=== PATIENT | female | born 1965 | race Caucasian/White ===

== ENCOUNTER 2018-05-25 15:06 | Inpatient (IN) | payer OTHER ==
[2018-05-25] MEDS: LIDOCAINE/MYLANTA 40 ML BTL PO (20:27)
[2018-05-25] MEDS: FAMOTIDINE 20 MG INJ IV (20:28)
[2018-05-25] MEDS: DIPHENHYDRAMINE 50 MG INJ IV (20:28)
[2018-05-25] MEDS: METOCLOPRAMIDE 10 MG INJ IV (20:28)
[2018-05-25 20:34] LABS: ADD UMIC YES; UR ASCORBIC ACID NEGATIVE (NEGATIVE); UR BILIRUBIN (Dip) NEGATIVE (NEGATIVE); UR BLOOD (Dip) NEGATIVE (NEGATIVE); UR CLARITY CLEAR (CLEAR); UR COLOR STRAW (YELLOW); UR GLUCOSE (Dip) NEGATIVE (NEGATIVE); UR KETONES (Dip) NEGATIVE (NEGATIVE); UR LEUKOCYTE ESTERASE (Dip) 1+ Leu/ul (NEGATIVE); UR NITRITE (Dip) NEGATIVE (NEGATIVE); UR RBC 0 /HPF (0-5); UR SPECIFIC GRAVITY (Dip) 1.011 (1.003-1.030); UR TOTAL PROTEIN (Dip) NEGATIVE (NEGATIVE); UR UROBILINOGEN (Dip) NEGATIVE (NEGATIVE); UR WBC 6 /HPF (0-5)
[2018-05-25 20:39] LABS: ADD MAN DIFF? NO
[2018-05-25 20:40] LABS: BASOPHIL # 0.1 10^3/ul (0.0-0.1); BASOPHILS % 0.5 % (0.0-2.0); EOSINOPHILS # 0.2 10^3/ul (0.0-0.5); EOSINOPHILS % 0.9 % (0.0-7.0); HEMATOCRIT 39.3 % (37.0-47.0); HEMOGLOBIN 12.8 g/dl (12.0-16.0); LYMPHOCYTES % 17.4 % (15.0-51.0); MEAN CORPUSCULAR HEMOGLOBIN 29.6 pg (29.0-33.0); MEAN CORPUSCULAR HGB CONC 32.6 g/dl (32.0-37.0); MEAN PLATELET VOLUME 10.3 fl (7.4-10.4); MONOCYTES % 5.5 % (0.0-11.0); NEUTROPHIL # 13.1 10^3/ul (1.6-7.5); NEUTROPHILS % 75.1 % (39.0-77.0); PLATELET COUNT 299 10^3/UL (140-415); RED BLOOD COUNT 4.32 10^6/ul (4.20-5.40); RED CELL DISTRIBUTION WIDTH 11.8 % (11.5-14.5)
[2018-05-25 20:40] LABS: WHITE BLOOD COUNT 17.4 10^3/ul (4.8-10.8)
[2018-05-25 21:01] LABS: ALANINE AMINOTRANSFERASE 28 IU/L (13-69); ALBUMIN 4.5 g/dl (3.3-4.9); ALBUMIN/GLOBULIN RATIO 1.07; ALKALINE PHOSPHATASE 110 IU/L (42-121); ANION GAP 12 (5-13); ASPARTATE AMINO TRANSFERASE 35 IU/L (15-46); BILIRUBIN,INDIRECT 0.3 mg/dl (0-1.1); BILIRUBIN,TOTAL 0.3 mg/dl (0.2-1.3); BLOOD UREA NITROGEN 12 mg/dl (7-20); CALCIUM 11.1 mg/dl (8.4-10.2); CARBON DIOXIDE 26 mmol/L (21-31); CHLORIDE 101 mmol/L (97-110); CREATININE 0.45 mg/dl (0.44-1.00); Estimated GFR > 60 mL/min (>60); GLUCOSE 145 mg/dl (70-220); LIPASE 66 U/L (23-300); SODIUM 139 mmol/L (135-144); TOTAL PROTEIN 8.7 g/dl (6.1-8.1)
[2018-05-26] MEDS ORDERED: CLINDAMYCIN 900 MG/D5W (PMX) 50 ML IVPB (01:30)
[2018-05-26] MEDS: SOD CHLORIDE 0.9% 1,000 ML IV ×3 (01:33→02:58)
[2018-05-26] MEDS: metroNIDAZOLE 500 MG/NS (PMX) 100 ML IVPB ×5 (01:46→23:26)
[2018-05-26] MEDS ORDERED: BISACODYL (EC) 5 MG TAB PO (02:30)
[2018-05-26] MEDS ORDERED: ONDANSETRON 4 MG INJ IV ×4 (02:30→14:30)
[2018-05-26] MEDS ORDERED: NACL 0.9% 3 ML SYG IV (02:30)
[2018-05-26] MEDS ORDERED: DOCUSATE SODIUM 100 MG CAP PO (02:30)
[2018-05-26] MEDS ORDERED: HYDROmorphONE 0.5 MG/0.5 ML SYG IV (02:30)
[2018-05-26] MEDS ORDERED: ACETAMINOPHEN 325 MG TAB PO ×2 (02:30→13:30)
[2018-05-26] MEDS: CIPROFLOXACIN 400MG/D5W 200 ML IVPB ×3 (02:58→21:02)
[2018-05-26 04:03] LABS: AMPHETAMINE/METHAMPHETAMINE Negative (NEGATIVE); BARBITURATES Negative (NEGATIVE); BENZODIAZEPINES Negative (NEGATIVE); CANNABINOIDS Negative (NEGATIVE); COCAINE Negative (NEGATIVE); OPIATES Negative (NEGATIVE)
[2018-05-26 04:17] LABS: ADD MAN DIFF? NO
[2018-05-26 04:21] LABS: BASOPHIL # 0.1 10^3/ul (0.0-0.1); BASOPHILS % 0.4 % (0.0-2.0); EOSINOPHILS # 0.2 10^3/ul (0.0-0.5); EOSINOPHILS % 1.3 % (0.0-7.0); HEMATOCRIT 36.8 % (37.0-47.0); HEMOGLOBIN 12.1 g/dl (12.0-16.0); LYMPHOCYTES # 2.3 10^3/ul (0.8-2.9); LYMPHOCYTES % 17.1 % (15.0-51.0); MEAN CORPUSCULAR HGB CONC 32.9 g/dl (32.0-37.0); MEAN CORPUSCULAR VOLUME 91.1 fl (82.0-101.0); MEAN PLATELET VOLUME 10.8 fl (7.4-10.4); NEUTROPHILS % 73.8 % (39.0-77.0); PLATELET COUNT 268 10^3/UL (140-415); RED BLOOD COUNT 4.04 10^6/ul (4.20-5.40)
[2018-05-26 04:21] LABS: WHITE BLOOD COUNT 13.5 10^3/ul (4.8-10.8)
[2018-05-26 04:31] LABS: HEMOGLOBIN A1C 7.3 % (0-5.9)
[2018-05-26 04:38] LABS: LIPASE 63 U/L (23-300)
[2018-05-26 04:41] LABS: INR 0.97; PARTIAL THROMBOPLASTIN TIME 26.7 Sec (23.0-35.0)
[2018-05-26 04:42] LABS: ALANINE AMINOTRANSFERASE 34 IU/L (13-69); ALBUMIN 3.8 g/dl (3.3-4.9); ALBUMIN/GLOBULIN RATIO 1.05; ALKALINE PHOSPHATASE 81 IU/L (42-121); ANION GAP 6 (5-13); ASPARTATE AMINO TRANSFERASE 25 IU/L (15-46); BILIRUBIN,INDIRECT 0.4 mg/dl (0-1.1); BILIRUBIN,TOTAL 0.4 mg/dl (0.2-1.3); BLOOD UREA NITROGEN 8 mg/dl (7-20); CALCIUM 9.8 mg/dl (8.4-10.2); CARBON DIOXIDE 28 mmol/L (21-31); CHLORIDE 103 mmol/L (97-110); CHOL/HDL RATIO 2.1 RATIO; CHOLESTEROL 156 mg/dl (100-200); CREATININE 0.53 mg/dl (0.44-1.00); Estimated GFR > 60 mL/min (>60); GLUCOSE 200 mg/dl (70-220); HDL CHOLESTEROL 72 mg/dl (37-92); LDL CHOLESTEROL,CALCULATED 72 mg/dl; SODIUM 137 mmol/L (135-144); TOTAL PROTEIN 7.4 g/dl (6.1-8.1); TRIGLYCERIDES 61 mg/dl (0-149)
[2018-05-26 04:43] LABS: ETHANOL < 10.0 mg/dl (0-0)
[2018-05-26] MEDS ORDERED: GLYCOPYRROLATE 0.4 MG INJ ×2 (07:00→14:18)
[2018-05-26] MEDS ORDERED: DESFLURANE 15 MIN (07:00)
[2018-05-26] MEDS ORDERED: CIPRO 400 MG/200 ML D5W IVPB (07:00)
[2018-05-26] MEDS: PANTOPRAZOLE (EC) 40 MG TAB PO (08:30)
[2018-05-26] MEDS: ACETAMINOPHEN 325 MG TAB PO (09:44)
[2018-05-26] MEDS: INSULIN ASPART [NOVOLOG] 3 ML PEN SC ×3 (12:13→20:13)
[2018-05-26] MEDS ORDERED: GLUCAGON 1 MG INJ IM (12:30)
[2018-05-26] MEDS ORDERED: GLUCOSE GEL 15 GRAM TUBE PO ×2 (12:30)
[2018-05-26] MEDS ORDERED: DEXTROSE 50% 50 ML SYRINGE IV ×2 (12:30)
[2018-05-26] MEDS ORDERED: GLUCOSE GEL 15 GRAM TUBE BUCCAL (12:30)
[2018-05-26] MEDS ORDERED: LIDOCAINE 1%/EPI (1:100,000) (MDV) 20 ML (12:43)
[2018-05-26] MEDS ORDERED: BUPIVACAINE 0.25% (MPF) 30 ML INJ (12:43)
[2018-05-26] MEDS ORDERED: PROPOFOL 20 ML (12:55)
[2018-05-26] MEDS ORDERED: ROCURONIUM 50 MG INJ (12:56)
[2018-05-26] MEDS ORDERED: ONDANSETRON 4 MG INJ (12:57)
[2018-05-26] MEDS ORDERED: DEXAMETHASONE 4 MG/ML 5 ML INJ (12:57)
[2018-05-26] MEDS ORDERED: LEVOFLOXACIN 500MG/D5W (PMX) 100 ML IVPB (13:30)
[2018-05-26] MEDS ORDERED: morphine 2 MG INJ IV (13:30)
[2018-05-26] MEDS ORDERED: NEOSTIGMINE 10 MG INJ (14:18)
[2018-05-26] MEDS: BUPIVACAINE 0.5%/EPI (SDV) 30 ML INJ (14:23)
[2018-05-26] MEDS: LIDOCAINE 1% (MPF) 30 ML INJ (14:23)
[2018-05-26] MEDS ORDERED: METOCLOPRAMIDE 10 MG INJ IV (14:30)
[2018-05-26] MEDS ORDERED: EPHEDrine SULFATE 50 MG/5 ML SYG IV (14:30)
[2018-05-26] MEDS ORDERED: MEPERIDINE 25 MG INJ IV (14:30)
[2018-05-26] MEDS ORDERED: hydrALAzine 20 MG INJ IV (14:30)
[2018-05-26] MEDS ORDERED: HYDROmorphONE 1 MG/5 ML IV SYRINGE IV ×3 (14:30)
[2018-05-26] MEDS ORDERED: DIPHENHYDRAMINE 50 MG INJ IV (14:30)
[2018-05-26] MEDS ORDERED: LABETALOL HCL 20MG INJ IV (14:30)
[2018-05-26] MEDS ORDERED: MIDAZOLAM 1 MG/ML 2 ML INJ IV (14:30)
[2018-05-26] MEDS ORDERED: ALBUTEROL 0.083% (NEB) 2.5 MG/3 ML AMP HHN (14:30)
[2018-05-26] MEDS ORDERED: FENTAnyl 50 MCG/ML VIAL IV ×2 (14:30)
[2018-05-26] MEDS ORDERED: OXYCODONE/ACETAMINOPHEN (5/325) TAB PO ×2 (14:30)
[2018-05-26] MEDS: FENTAnyl 50 MCG/ML VIAL IV (14:45)
[2018-05-26] MEDS: D5-NS + KCL 20 MEQ 1,000 ML IV ×2 (15:43→23:04)
[2018-05-26] MEDS: INSULIN GLARGINE [LANTus] (100 UNITS/ML) SYG SC (20:13)
[2018-05-27] MEDS: HYDROCODONE/APAP (10/325) TAB PO ×2 (00:09→16:15)
[2018-05-27] MEDS: ACCU-CHEK XX (02:00)
[2018-05-27] MEDS: IBUPROFEN 600 MG TAB PO (03:19)
[2018-05-27] MEDS: D5-NS + KCL 20 MEQ 1,000 ML IV ×2 (03:21→09:04)
[2018-05-27] MEDS: metroNIDAZOLE 500 MG/NS (PMX) 100 ML IVPB ×2 (05:19→12:00)
[2018-05-27 05:33] LABS: ADD MAN DIFF? NO
[2018-05-27 05:36] LABS: WHITE BLOOD COUNT 14.5 10^3/ul (4.8-10.8)
[2018-05-27 05:36] LABS: BASOPHILS % 0.2 % (0.0-2.0); EOSINOPHILS % 0.1 % (0.0-7.0); HEMATOCRIT 34.2 % (37.0-47.0); LYMPHOCYTES # 2.2 10^3/ul (0.8-2.9); LYMPHOCYTES % 15.4 % (15.0-51.0); MEAN CORPUSCULAR HEMOGLOBIN 29.7 pg (29.0-33.0); MEAN CORPUSCULAR HGB CONC 32.2 g/dl (32.0-37.0); MEAN CORPUSCULAR VOLUME 92.4 fl (82.0-101.0); MEAN PLATELET VOLUME 10.2 fl (7.4-10.4); MONOCYTE # 1.1 10^3/ul (0.3-0.9); MONOCYTES % 7.3 % (0.0-11.0); NEUTROPHIL # 11.1 10^3/ul (1.6-7.5); NEUTROPHILS % 76.4 % (39.0-77.0); PLATELET COUNT 251 10^3/UL (140-415); RED CELL DISTRIBUTION WIDTH 11.9 % (11.5-14.5)
[2018-05-27 05:59] LABS: LIPASE 35 U/L (23-300)
[2018-05-27 06:07] LABS: ALANINE AMINOTRANSFERASE 54 IU/L (13-69); ALBUMIN 3.5 g/dl (3.3-4.9); ALKALINE PHOSPHATASE 66 IU/L (42-121); ANION GAP 6 (5-13); ASPARTATE AMINO TRANSFERASE 40 IU/L (15-46); BILIRUBIN,INDIRECT 0.3 mg/dl (0-1.1); BILIRUBIN,TOTAL 0.3 mg/dl (0.2-1.3); BLOOD UREA NITROGEN 10 mg/dl (7-20); CALCIUM 9.8 mg/dl (8.4-10.2); CARBON DIOXIDE 26 mmol/L (21-31); CHLORIDE 105 mmol/L (97-110); CREATININE 0.53 mg/dl (0.44-1.00); Estimated GFR > 60 mL/min (>60); GLUCOSE 165 mg/dl (70-220); POTASSIUM 4.1 mmol/L (3.5-5.1); SODIUM 137 mmol/L (135-144)
[2018-05-27] MEDS: ENOXAPARIN 40 MG/0.4 ML SYG SC (06:22)
[2018-05-27] MEDS: PANTOPRAZOLE (EC) 40 MG TAB PO (06:22)
[2018-05-27] MEDS: INSULIN ASPART [NOVOLOG] 3 ML PEN SC ×2 (08:17→12:00)
[2018-05-27] MEDS: LINAGLIPTIN 5 MG TABLET PO (08:24)
[2018-05-27] MEDS: CIPROFLOXACIN 400MG/D5W 200 ML IVPB (10:15)
== END 2018-05-27 16:25 | disposition home or self-care (01) | DRG 418 ==
LOC: FTE 15:06 → PP2 05-26 02:08
PROC: 0FT44ZZ Resection of Gallbladder, Percutaneous Endoscopic Approach (ICD-10-PCS; principal; 2018-05-26 13:00)
DX: K80.00 Calculus of gallbladder with acute cholecystitis without obstruction (principal); Z68.41 Body mass index [BMI] 40.0-44.9, adult; E66.01 Morbid (severe) obesity due to excess calories; K21.9 Gastro-esophageal reflux disease without esophagitis; E11.9 Type 2 diabetes mellitus without complications; K29.70 Gastritis, unspecified, without bleeding; K57.30 Diverticulosis of large intestine without perforation or abscess without bleeding; Z79.4 Long term (current) use of insulin; Z79.82 Long term (current) use of aspirin
CPT/HCPCS: 71045; 74176; 76705; 80053; 80061; 80307; 81001; 82306; 82962; 83036; 83690; 83735; 84443; 85025; 85610; 85730; 88304; 93005; 96374; 96375; 99285-25